=== PATIENT | male | born 1995 | race Two or more races ===

== ENCOUNTER 2022-05-18 12:45 | Emergency (ER) | payer MEDICAID, OTHER ==
[~2022-05-18] VITALS: Ht 165.1 cm; Wt 63.5 kg
--- NOTE | 2022-05-18 13:09 | NUR ---
TO ER BED 9. BIBS FOR LEFT HAND 5TH DIGIT LACERATION SAW. CURRENTLY RATES PAIN 09/09. AMBULATORY W/ STEADY GAIT. ASSISTED TO BED.
[2022-05-18] MEDS ORDERED: TDAP [DIPH/PERTUSSIS/TET] 0.5 ML VIAL IM ONE ×2 (13:24→13:30)
--- NOTE | 2022-05-18 13:30 | NUR ---
[facility] PER PATIENT. TDAP GIVEN LEFT DELTOID LOT#[id number], EXP-03/01/2024.
--- NOTE | 2022-05-18 13:43 | NUR ---
CONTACTED ORTHO DR. MOSS
--- NOTE | 2022-05-18 14:02 | NUR ---
DR. SANFORD AT BEDSIDE.
[2022-05-18] MEDS ORDERED: CEPH500T PO (14:29)
[2022-05-18] MEDS ORDERED: LIDOCAINE HCL/PF 1% 30 ML VIAL TP ONE (14:30)
[2022-05-18] MEDS ORDERED: CEFAZOLIN 1 GM VIAL IM ONE (14:30)
[2022-05-18 14:54] VITALS: BP 134/76
== END 2022-05-18 14:55 | disposition home or self-care (01) ==
LOC: ER 12:49
DX: S62.657B Nondisplaced fracture of middle phalanx of left little finger, initial encounter for open fracture (principal); Z90.89 Acquired absence of other organs; Z79.899 Other long term (current) drug therapy; X58.XXXA Exposure to other specified factors, initial encounter; Y93.89 Activity, other specified; Y92.89 Other specified places as the place of occurrence of the external cause; Y99.8 Other external cause status
CPT/HCPCS: 12002; 73140; 90471; 90715; 96372; 99284; A6403; J0690; J3490